=== PATIENT | female | born 1970 | race Caucasian/White ===

== ENCOUNTER → 2016-11-17 | Outpatient (CLI) | payer SELFPAY | END | disposition home or self-care (01) | LOC: LAB.O 16:24 | PROVIDERS: ATTEND Nurse Practitioner | DX: F33.1 Major depressive disorder, recurrent, moderate (principal); E55.9 Vitamin D deficiency, unspecified; D51.8 Other vitamin B12 deficiency anemias ==

== ENCOUNTER → 2018-12-13 | Outpatient (CLI) | payer MEDICARE, SELFPAY ==
--- NOTE | 2018-12-14 15:02 | MAM ---
EXAM DESCRIPTION: 3D Screening BILATERAL : Digital Mammography. CLINICAL HISTORY: 48 years Female SCREENING . No complaints or personal history of breast cancer. Remote family history of breast cancer. No childbirth. Perimenopausal. No HRT. Lifetime risk of developing breast cancer (Tyrer-Cuzick model)(%): 10.0. COMPARISON: Baseline study at this facility. No prior reports available. TECHNIQUE: Bilateral CC and MLO projection full-field images, digital tomosynthesis mammographic technique. Bilateral digital 2-D full-field MLO images. CAD not available for tomosynthesis or 2-D images. FINDINGS: The breast parenchymal density pattern is: Scattered areas of fibroglandular density. No skin thickening or nipple retraction. Bilateral solitary microcalcifications. Bilateral axillary lymph nodes. Possible mass density in the mid to anterior third of the right breast at the 11:30 clock position approximately 4 cm from the nipple. Mass density versus focal asymmetry in the posterior third of the left breast at the 9:00 position approximately 8 cm from the nipple. Best seen on the MLO image; only partially visualized on the CC image. It may be the 12:00 position for the 10:00 position. IMPRESSION: BI-RADS CATEGORY: 0 - INCOMPLETE- Need additional imaging evaluation. FOLLOW-UP: Recall for additional imaging: Bilateral orthogonal diagnostic LM tomosynthesis images followed by bilateral targeted breast ultrasound.. Written communication concerning the IMPRESSION and Follow-up, will be mailed to the patient and referring health care provider. Electronically signed by: Zaid Murray MD 12/14/2018 2:59 PM CDT
== END ==
LOC: MAMMO 14:10
PROVIDERS: ATTEND General Practice
DX: Z12.31 Encounter for screening mammogram for malignant neoplasm of breast (principal)

== ENCOUNTER → 2019-01-01 | Outpatient (CLI) | payer MEDICARE ==
--- NOTE | 2019-01-01 16:07 | MAM ---
EXAM DESCRIPTION: 3D Diagnostic, Bilateral (accession [id number]), Breast,Bilateral (accession [id number]): Ultrasound CLINICAL HISTORY: 48 yearsFemaleABNORMAL MAMMO COMPARISON: Bilateral screening digital breast tomosynthesis 12/13/2018. TECHNIQUE: Transcutaneous scanning of the bilateral breasts utilizing nava-scale and Doppler modes. Scanning performed by the clinical appeals reviewer and Dr. Murray. Bilateral ML projection full-field images, digital mammographic tomosynthesis technique. CAD not available. FINDINGS: The breast parenchymal density pattern is: Scattered areas of fibroglandular density. No skin thickening or nipple retraction mass density is visible at the 10:00 sector of the left breast 10 cm from the nipple on the ML tomosynthesis. Not associated with microcalcifications. Denser than the surrounding fibroglandular tissues. At the 10:00 position of the right breast 4 cm from the nipple is a mass density with lobulated and circumscribed margins. Not associated with calcifications. Slightly denser than the surrounding fibroglandular tissues. Also noted is focal asymmetry at the 12:00 position of the breast 8 cm from the nipple. Not associated with calcifications.. Ultrasound: Scanning of the right breast in the 10:00 sector 4 cm from the nipple. Mixture of fibroglandular and fatty echotextures. A mass is noted with a capsule and multiple anechoic compartments divided by septations which are echogenic. Dimensions are 10.3 x 16.4 x 6.1 mm. Predominantly circumscribed margins and posterior acoustic enhancement. No large calcifications. No dominant solid mass. No vascularity. Scanning in the left breast at the 10:00 sector 8 cm from the nipple. Hypoechoic mass with ill-defined posterior margins and posterior shadowing. Some microlobulated and angular margins. Not vascular. Measures 8.4 x 7.0 x 5.8 mm with taller than wide orientation. No cysts, no large calcifications, and no parenchymal edema. Scanning at the 12:00 sector of the left breast from the nipple to the chest wall shows no dominant solid mass or cyst. No parenchymal edema or large calcifications. No overlying skin changes. Normal vascularity. IMPRESSION: 8.4 mm solid mass in the left breast has features suggestive of malignancy. ASSESSMENT: BI-RADS CATEGORY 4: SUSPICIOUS. SUB-CATEGORY 4A - LOW SUSPICION FOR MALIGNANCY. FOLLOW-UP: Surgical consultation and tissue diagnosis should be considered. The FINDINGS and FOLLOW-UP plan were reviewed in person with the patient following the examination. Written communication explaining the IMPRESSION and FOLLOW-UP will be mailed to the patient and referring care provider. CRITICAL COMMUNICATION: The critical value was discussed directly by phone with HAO Black at approximately 1535 hours, on January 01, 2019. Electronically signed by: Zaid Murray MD 01/01/2019 4:05 PM CDT
== END ==
LOC: RAD 14:01
PROVIDERS: ATTEND Nurse Practitioner Family
DX: N63.20 Unspecified lump in the left breast, unspecified quadrant (principal)
CPT/HCPCS: 76641; 77066; G0279

== ENCOUNTER → 2019-01-11 | Outpatient (CLI) | payer MEDICARE ==
--- NOTE | 2019-01-11 13:51 | OP ---
DATE OF PROCEDURE: 01/11/19 PREOPERATIVE DIAGNOSIS: 1. Abnormal left mammogram with mass in the 10 o'clock position, left breast. POSTOPERATIVE DIAGNOSIS: 1. Abnormal left mammogram with mass in the 10 o'clock position, left breast. PROCEDURE: 1. Sonographically guided needle core biopsy, left breast mass. SURGEON: Ez Clinton MD. DONOR RELATIONS ASSOCIATE: None. ANESTHESIA: Local infiltration of 1% lidocaine. INDICATION: The patient is a 48-year-old female who had routine mammography and workup eventually revealed a solid mass in the 10 o'clock position in the left breast. She was brought to the Ultrasound Suite today for sonographically guided biopsy after the risks, benefits and alternatives to the procedure were discussed and accepted by the patient. FINDINGS: Multiple good cores were taken through the easily identifiable mass at the 10 o'clock position in the left breast. PROCEDURE: The patient was brought to the Ultrasound Suite and laid in the supine position with the left shoulder elevated with a pillow. The left breast was then examined using the ultrasound probe. The lesion was identified. The breast lateral to the ultrasound probe was prepped with Betadine and draped with sterile towels. Local infiltration of anesthesia was obtained with 1% lidocaine and then the tissue between the mass and the skin was also infiltrated with local anesthesia. A stab wound was then made with a 15 blade and multiple passes were made with the biopsy needle under direct ultrasound guidance. The specimens were sent for pathological evaluation. Hemostasis was obtained with pressure. The skin edges were approximated with a single 4-0 Nylon simple suture. Sterile pressure dressing was applied. The patient tolerated the procedure well. Estimated blood loss less than 5 mL. #[id number] [facility]
--- NOTE | 2019-01-15 10:42 | US ---
EXAM DESCRIPTION: Biopsy/Needle Guidance: Ultrasound. CLINICAL HISTORY: 48 years Female ABN MAMMO. Abnormal solid left breast mass. COMPARISON: Diagnostic ultrasound of the left breast on 01/01/2019. TECHNIQUE: The procedure was performed by Dr. Clinton. Repeat ultrasound localized breast solid mass at the 10:00 position of the left breast 8 cm from the nipple.. Sterile preparation. Sterile ultrasound guidance during needle passes. FINDINGS: Images before the procedure show the solid nodule with taller than wide orientation, lobulated margins, and prominent posterior acoustic shadowing. Images taken during the procedure show the echogenic needle passing through the nodule. IMPRESSION: Successful, ultrasound-guided needle core biopsy of abnormal appearing nodule/mass in the left breast. Adequate core samples were obtained. Pathology examination at remote facility, results pending. Electronically signed by: Zaid Murray MD 01/15/2019 10:40 AM CDT
== END ==
LOC: US 11:58
PROVIDERS: ATTEND Surgery
DX: R92.8 Other abnormal and inconclusive findings on diagnostic imaging of breast (principal)

== ENCOUNTER → 2019-06-20 | Outpatient (CLI) | payer MEDICARE ==
--- NOTE | 2019-06-20 19:11 | MAM ---
EXAM DESCRIPTION: Diagnostic Mammo,Left (accession [id number]), Breast,Left (accession [id number]): Ultrasound CLINICAL HISTORY: 48 yearsFemaleFU BREAST DX ultrasound-guided needle core biopsy of left breast mass benign January 2019. No complaints. COMPARISON: Bilateral diagnostic tomosynthesis and bilateral directed breast ultrasound 01 January 2019. Ultrasound-guided needle core biopsy left breast 11 Jan 2019. TECHNIQUE: Left breast LM, CC, and MLO projection full-field images, digital mammographic tomosynthesis technique. Left breast 2-D digital full-field images. LM, CC, and MLO CAD not available. . Transcutaneous scanning of the left breast utilizing nava-scale and Doppler modes. Scanning performed by the national accounts sales and Dr. Murray. FINDINGS: The breast parenchymal density pattern is: Heterogeneously dense breast tissue, which may obscure small masses. No skin thickening or nipple retraction . Mass density in the posterior third of the left breast, denser than the surrounding fibroglandular tissues on tomosynthesis images. Located 10:00 position 10 cm from the nipple. No change from the prior study. No new focal, stellate mass or density, focal asymmetry , and no suspicious microcalcifications left breast. Ultrasound: Scanning of the upper-outer quadrant posterior third left breast. Heterogeneous tissues mostly fibroglandular with scattered fatty elements. Slightly microlobulated and echogenic margin again seen in the mass 10:00, 8 cm from the nipple. No vascularity. Some angulation of margins. Dimension is similar AP and transverse, approximately 7 cm. Dense posterior acoustic shadowing. No definite calcifications. No distinct cyst. No overlying skin changes. IMPRESSION: Benign Mass by biopsy stable in size and appearance since the biopsy in January 2019. BI-RADS CATEGORY: 3 - PROBABLY BENIGN. Management: Short interval (6-month) diagnostic tomosynthesis of the left breast with directed left breast ultrasound of the region of interest performed to coincide with routine 12 month follow-up of right breast after December 14, 2019.. The FINDINGS and the FOLLOW-UP plan were reviewed in person with the patient after the examination. Written communication explaining the IMPRESSION and FOLLOW-UP will be mailed to the patient and referring care provider. Electronically signed by: Zaid Murray MD 06/20/2019 7:09 PM CDT
== END ==
LOC: MAMMO 10:00
PROVIDERS: ATTEND Surgery
DX: Z09 Encounter for follow-up examination after completed treatment for conditions other than malignant neoplasm (principal); D24.2 Benign neoplasm of left breast

== ENCOUNTER → 2020-01-02 | Outpatient (CLI) | payer MEDICARE ==
--- NOTE | 2020-01-03 09:17 | CT ---
EXAM DESCRIPTION: Cardiac Calcium Scoring Screen: Computed Tomography. CLINICAL HISTORY: Coronary Artery Calcium Scoring COMPARISON: None. TECHNIQUE: Spiral-axial scans at 2.5 x 0.4 mm intervals through the coronary arteries without IV contrast. Special algorithm was used, and cardiac gating. No reconstructions. Total Exam DLP: 110 mGy-cm. This exam was performed according to our departmental CT dose-optimization program which includes automated exposure control, adjustment of the mA and/or kV according to patient size and/or use of iterative reconstruction technique; to reduce radiation dose to as low as reasonably achievable (ALARA). Some images may have been skipped or repeated due to the heart rhythm or respiration. FINDINGS: The patient has a total Agatston calcium score of 0. This places the patient in the 0 percentile in comparison to a group of patients asymptomatic for coronary artery disease with the same age and gender. This means that no females ages 46-50 have calcium scores lower than the patient. The included mediastinum, bilateral alyx, and included regla-hilar lung show a small gastric hiatal hernia vs paraesophageal hernia. Possible fluid in the azygos space versus lymph node. Posterior left and lateral right pericardial thickening versus effusion. IMPRESSION: 1. Total coronary artery calcium score of 0. 0 percentile for age and gender. 2. The included mediastinum, lung, and regla-hilar areas show pericardial thickening versus effusion. Possible fluid in the azygos space of the mediastinum. Also small hiatal hernia versus paraesophageal hernia. Consider follow-up cardiac echo sonogram. Electronically signed by: Zaid Murray MD 01/03/2020 9:15 AM CDT
== END ==
LOC: CT 13:58
PROVIDERS: ATTEND General Practice
DX: E78.5 Hyperlipidemia, unspecified (principal); R91.8 Other nonspecific abnormal finding of lung field; K46.9 Unspecified abdominal hernia without obstruction or gangrene

== ENCOUNTER → 2020-02-11 | Outpatient (CLI) | payer MEDICARE ==
--- NOTE | 2020-02-11 17:33 | US ---
EXAM DESCRIPTION: 3D Diagnostic, Bilateral (accession [id number]), Breast,Left (accession [id number]): Ultrasound CLINICAL HISTORY: 49 yearsFemaleINCONCLUSIVE MAMMOGRAM six-month follow-up. Benign left breast biopsy January 2019 fibroadenoma. No current complaints. Remote family history of breast cancer. Menarche age 11. Childbirth age 8. Perimenopausal. No HRT Lifetime risk of developing breast cancer (Tyrer-Cuzick model)(%): 12.4. COMPARISON: Bilateral screening digital breast tomosynthesis December 2018. Diagnostic left breast tomosynthesis and ultrasound December 2018. Diagnostic left breast tomosynthesis and ultrasound June 2019. TECHNIQUE: Bilateral LM, CC, and MLO projection full-field images, digital tomosynthesis technique. Bilateral 2-D digital full-field images: LM, CC, and MLO projections. CAD available for 2-D images.. Transcutaneous scanning of the left breast utilizing nava-scale and Doppler modes. Scanning performed by the flaring machine operator ; observation by Dr. Murray. FINDINGS: The breast parenchymal density pattern is: Scattered areas of fibroglandular density. No skin thickening or nipple retraction bilateral solitary microcalcifications. Intramammary lymph node anterior upper outer quadrant right breast stable. Right axillary lymph nodes. Previously biopsied fibroadenoma again noted in the posterior upper inner quadrant of the left breast. Stable appearance since the prior study. No microcalcifications. No new focal, stellate mass or density, focal asymmetry , and no suspicious microcalcifications right breast. Ultrasound: Scanning of the region of interest posterior third of the upper inner quadrant of the left breast. Mostly fatty echotexture with minimal fibroglandular tissues. Again noted is irregular hypoechoic nodule with posterior acoustic shadowing in the 10:00 position of the left breast 8 cm from the nipple. 6.5 x 5.2 mm. Dimension 6.9 x 5.5 mm on the prior study. No new dominant solid mass. No distinct cyst, no fluid collection, no large calcifications. No overlying skin changes. IMPRESSION: Benign exam. BIRAD CATEGORY: 2 BENIGN FINDINGS. RECOMMENDATIONS: FOLLOW UP: Return to routine digital bilateral mammographic screening, one year interval from February 2020. Written communication explaining the IMPRESSION and follow-up, will be mailed to the patient and referring health care provider. The FINDINGS and the FOLLOW-UP plan were reviewed in person with the patient after the examination. According to the [employer], yearly mammograms are recommended starting at age 40 and continuing as long as a woman is in good health. Any breast change noted on a breast self-exam should be reported promptly to the patient's healthcare provider. Breast MRI is recommended for women with an approximately 20-25% or greater lifetime risk of breast cancer, including women with a strong family history of breast or ovarian cancer and women who have been treated for Hodgkin's disease. A negative mammographic report should not delay tissue diagnosis in patients with significant clinical history or physical findings. Extremely dense breast tissue limits the sensitivity of digital mammography. Electronically signed by: Zaid Murray MD 02/11/2020 5:32 PM CDT
== END ==
LOC: MAMMO 14:12
PROVIDERS: ATTEND General Practice
DX: R92.2 Inconclusive mammogram (principal)
CPT/HCPCS: 76641; 77066; G0279